=== PATIENT | male | born 1955 | race Caucasian/White ===

== ENCOUNTER 2017-05-21 14:09 | Emergency (ER) | payer OTHER ==
[~2017-05-21] VITALS: Ht 180.3 cm; Wt 83.9 kg
[~2017-05-21 14:09] MED LIST: ALLOPURINOL; ALLOPURINOL100 MG PO; AMLODIPINE BESY10 MG PO; APRESOLINE100 MG PO; ASPIR 8181 M1 PO; CHANTIX1 MG PO; CRESTOR20 MG PO; CYMBALTA60 MG PO; FISH OIL SOFTG1 EACH PO; GEMFIBROZIL600 MG PO; INDERIDE 40/1 TABLET PO; LOPID600 MG PO; LORAZEPAM0.5 MG; LOTREL; METOPROLOL TART25 MG PO; MUCINEX DM ER1 EAC1 PO; NITROSTAT0.4 MG SL; ONE-A-DAY MEN'1 EACH PO; PANTOPRAZOLE SO40 MG PO; PEN-VEE K,VEET500 MG PO; PROTONIX40 MG PO; SEROQUEL50 MG PO; ULTRAM50 MG PO; VITAMIN D
[2017-05-21 16:30] LABS: MCH 33.4 PG (29.0-34.0); MCHC 34.9 G/DL (30.0-36.0); MCV 95.8 FL (86-99); MEAN PLAT.VOLUME 10.6 uM^3 (9.0-12.4); PLATELET COUNT 154 K/uL (156-360); RBC DIS.WIDTH-CV 12.2 % (11.8-14.6); RBC DIS.WIDTH-SD 42.9 % (39-53); RED BLOOD COUNT 4.07 M/uL (4.00-5.50); WHITE BLOOD COUNT 4.7 K/uL (4.1-10.2)
[2017-05-21 16:38] LABS: CHLORIDE 105 mEq/L (99-109); POTASSIUM 3.9 mEq/L (3.7-5.4); SODIUM 139 mEq/L (136-147)
[2017-05-21 16:40] LABS: GLUCOSE 110 mg/dL (70-99)
[2017-05-21 16:41] LABS: ANION GAP 6 MEQ/L (2-14)
[2017-05-21 16:42] LABS: TOTAL BILIRUBIN 0.5 mg/dL (0.0-1.0)
[2017-05-21 16:43] LABS: ALKALINE PHOSPHATASE 89 IU/L (3-129)
[2017-05-21 16:44] LABS: GFR ESTIMATE (CALCULATED) > 59 mL/min/
[2017-05-21 16:45] LABS: UREA NITROGEN (BUN) 6 mg/dL (9-23)
[2017-05-21 17:01] LABS: ADD MIUA? NO; BILIRUBIN NEGATIVE; BLOOD NEGATIVE; COLOR STRAW ((YELLOW)); GLUCOSE (STRIP) NEGATIVE; KETONES NEGATIVE; LEUKOCYTES NEGATIVE; NITRITE NEGATIVE; PROTEIN (STRIP) NEGATIVE; SPECIFIC GRAVITY 1.003 (1.000-1.030); UCUL ADDED? NO; UROBILINOGEN 0.2 MG/DL (0.2-1.0)
[2017-05-21 17:10] LABS: ADD MEDTOX COMMENT Y; AMPHETAMINE PRESUMPTIVE POSITIVE (500 ng/mL); BARBITURATES NEGATIVE (200 ng/mL); BENZODIAZEPINES NEGATIVE (150 ng/mL); COCAINE NEGATIVE (150 ng/mL); INTERNAL CONTROLS VALID? YES; METHADONE NEGATIVE (200 ng/mL); METHAMPHETAMINE NEGATIVE (500 ng/mL); OPIATES (MORPHINE) NEGATIVE (100 ng/mL); OXYCODONE PRESUMPTIVE POSITIVE (100 ng/mL); PHENCYCLIDINE NEGATIVE (25 ng/mL); PROPOXYPHENE NEGATIVE (300 ng/mL); THC CANNABINOIDS NEGATIVE (50 ng/mL); TRICYCLIC ANTIDEPRESSANTS NEGATIVE (300 ng/mL)
[2017-05-21 17:25] LABS: SERUM ETHYL ALCOHOL < 10 mg/dL
[2017-05-21 17:38] LABS: AMPHETAMINES QUANT VALUE 0 NG/ML
[2017-05-21 18:00] VITALS: BP 112/70
== END 2017-05-21 18:01 | disposition home or self-care (01) ==
LOC: EME 14:09
PROVIDERS: Nurse Practitioner Family
DX: M79.1 Myalgia (principal); R53.1 Weakness; R42 Dizziness and giddiness; I10 Essential (primary) hypertension; K21.9 Gastro-esophageal reflux disease without esophagitis; G89.29 Other chronic pain; F32.9 Major depressive disorder, single episode, unspecified; F17.210 Nicotine dependence, cigarettes, uncomplicated; Z86.73 Personal history of transient ischemic attack (TIA), and cerebral infarction without residual deficits; Z87.442 Personal history of urinary calculi; Z79.82 Long term (current) use of aspirin; Z88.5 Allergy status to narcotic agent
CPT/HCPCS: 70450; 80053; 81003; 84999; 85027; 93005; 99281; 99284; G0480